=== PATIENT | female | born 1955 | race Caucasian/White ===

== ENCOUNTER 2017-05-23 15:44 | Emergency (ER) | payer OTHER ==
[2017-05-23 15:53] VITALS: RESP 18; TEMP 98.7; O2SAT 96; BMI 23.6
--- NOTE | 2017-05-23 16:11 | ED PDOC ---
Arrival/HPI - General Chief Complaint: High Blood Pressure Time Seen by Provider: 05/23/17 15:56 Historian: Patient - History of Present Illness Narrative History of Present Illness (Text): 05/23/17 16:07 A 61 year old female, whose past medical history includes diabetes and hypertension, presents to the emergency department complaining of elevated blood pressure. Patient reports she monitors her blood pressure daily and today it measured 182/110 which caused her to come in for further evaluation. Patient currently notes mild headache but denies any fever, chills, nausea, vomiting, abdominal pain, chest pain, shortness of breath or any other complaints. Patient is compliant with medication. She reports she is visiting from the [facility]. Time/Duration: Prior to Arrival Symptom Course: Unchanged Quality: Other Context: Home Past Medical History - Provider Review Nursing Documentation Reviewed: Yes - Infectious Disease Hx of Infectious Diseases: None - Cardiac Hx Hypertension: Yes - Endocrine/Metabolic Hx Diabetes Mellitus Type 2: Yes - Psychiatric Hx Substance Use: No - Surgical History Hx Section: Yes (x2) - Anesthesia Hx Anesthesia: Yes Hx Anesthesia Reactions: No Hx Malignant Hyperthermia: No Family/Social History - Physician Review Nursing Documentation Reviewed: Yes Family/Social History: No Known Family HX Smoking Status: Current Some Days Smoker Hx Alcohol Use: No Hx Substance Use: No Allergies/Home Meds Allergies/Adverse Reactions: Allergies shrimp Allergy (Verified 05/23/17 15:52) ITCHING Home Medications: Home Meds Medication Instructions Recorded Confirmed Candesartan Cilexetil [Atacand] 1 tab PO DAILY 05/23/17 05/23/17 Sitagliptin Phos/Metformin HCl 1 tab PO DAILY 05/23/17 05/23/17 [Janumet 50-1,000 mg Tablet] Review of Systems - Physician Review All systems were reviewed & negative as marked: Yes - Review of Systems Constitutional: Other (high blood pressure). absent: Fevers, Night Sweats Respiratory: absent: SOB Cardiovascular: absent: Chest Pain Gastrointestinal: absent: Abdominal Pain, Nausea, Vomiting Neurological: Headache Physical Exam Vital Signs Reviewed: Yes Vital Signs Temp Pulse Resp BP Pulse Ox 05/23/17 15:54 149/88 05/23/17 15:52 98.7 F 62 18 166/99 H 96 Temperature: Afebrile Blood Pressure: Hypertensive Pulse: Regular Respiratory Rate: Normal Appearance: Positive for: Well-Appearing, Non-Toxic, Comfortable Pain Distress: None Mental Status: Positive for: Alert and Oriented X 3 - Systems Exam Head: Present: Atraumatic, Normocephalic Pupils: Present: PERRL Extroacular Muscles: Present: EOMI Conjunctiva: Present: Normal Mouth: Present: Moist Mucous Membranes Neck: Present: Normal Range of Motion Respiratory/Chest: Present: Clear to Auscultation, Good Air Exchange. No: Respiratory Distress, Accessory Muscle Use Cardiovascular: Present: Regular Rate and Rhythm, Normal S1, S2. No: Murmurs Abdomen: Present: Normal Bowel Sounds. No: Tenderness, Distention, Peritoneal Signs Back: Present: Normal Inspection Upper Extremity: Present: Normal Inspection. No: Cyanosis, Edema Lower Extremity: Present: Normal Inspection. No: Edema Neurological: Present: GCS=15, CN II-XII Intact, Speech Normal Skin: Present: Warm, Dry, Normal Color. No: Rashes Psychiatric: Present: Alert, Oriented x 3, Normal Insight, Normal Concentration Medical Decision Making ED Course and Treatment: 05/23/17 16:07 Impression: A 61 year old female with high blood pressure Progress Notes: Patient reports she did not take anything for her elevated blood pressure. Patient presented to emergency department and blood pressure resolved spontaneously. Patients blood pressure in emergency room is 149/88. I have discussed the plan with the patient, who expresses understanding. Patient in agreement with plan to be discharged home. Patient is stable for discharge. Patient was instructed to follow up with physician or return if symptoms worsen or new concerning symptoms arise. EKG shows NSR at 56 BPM with normal intervals, no ST/T changes. Interpreted by me. - Scribe Statement The provider has reviewed the documentation as recorded by the Jm Watts Provider Scribe Attestation: All medical record entries made by the Scribgabrielle were at my direction and personally dictated by me. I have reviewed the chart and agree that the record accurately reflects my personal performance of the history, physical exam, medical decision making, and the department course for this patient. I have also personally directed, reviewed, and agree with the discharge instructions and disposition. Disposition/Present on Arrival - Present on Arrival Any Indicators Present on Arrival: No History of DVT/PE: No History of Uncontrolled Diabetes: No Urinary Catheter: No History of Decub. Ulcer: No History Surgical Site Infection Following: None - Disposition Have Diagnosis and Disposition been Completed?: Yes Diagnosis: Hypertension Disposition: HOME/ ROUTINE Disposition Time: 16:15 Patient Plan: Discharge Condition: GOOD Discharge Instructions (ExitCare): Hypertension (ED) Additional Instructions: Follow-up with PMD within 2 days. Take medication as prescribed. Return to ED if condition worsens. Forms: [employer] (Malay)
[2017-05-23 16:36] VITALS: PULSE 64
[2017-05-23 16:38] VITALS: BP 136/83
--- NOTE | 2017-05-25 19:55 | CARD ---
APPROVED REPORT EKG Measurement Heart [id number] DC 170P66 [id number] <Conclusion> Sinus bradycardia Otherwise normal ECG
== END 2017-05-23 16:38 | disposition home or self-care (01) ==
LOC: ED 15:44
DX: I10 Essential (primary) hypertension (principal); E11.9 Type 2 diabetes mellitus without complications; F17.210 Nicotine dependence, cigarettes, uncomplicated